=== PATIENT | male | born 1985 | race Caucasian/White ===

== ENCOUNTER 2020-04-09 13:59 | Emergency (ER) | payer OTHER ==
[~2020-04-09] VITALS: Ht 170.2 cm; Wt 68.0 kg
[2020-04-09] MEDS ORDERED: KEFLEX500 M1 PO (14:45)
[2020-04-09] MEDS ORDERED: BACTRIM DS TAB1 EACH PO (14:45)
[2020-04-09 14:51] VITALS: BP 128/71
== END 2020-04-09 14:52 | disposition home or self-care (01) ==
LOC: M.ERS 13:59
DX: L02.214 Cutaneous abscess of groin (principal); L02.511 Cutaneous abscess of right hand; L02.415 Cutaneous abscess of right lower limb; L02.11 Cutaneous abscess of neck; F15.90 Other stimulant use, unspecified, uncomplicated